=== PATIENT | female | born 1955 | race Caucasian/White ===

== ENCOUNTER 2024-01-24 20:34 | Emergency (ER) | payer MEDICARE, MEDICAID ==
[~2024-01-24] VITALS: Ht 157.5 cm; Wt 54.4 kg
[2024-01-24 20:43] VITALS: BP 152/74; PULSE 64; RESP 64; TEMP 98.3; O2SAT 94
[2024-01-24] MEDS: TRAMADOL 50MG TABLET PO ONE (22:34)
== END 2024-01-25 02:40 | disposition home or self-care (01) ==
LOC: ER 20:34
DX: S76.012A Strain of muscle, fascia and tendon of left hip, initial encounter (principal); I10 Essential (primary) hypertension; J44.1 Chronic obstructive pulmonary disease with (acute) exacerbation; Z88.6 Allergy status to analgesic agent; W07.XXXA Fall from chair, initial encounter; Y93.89 Activity, other specified; Y92.89 Other specified places as the place of occurrence of the external cause; Y99.8 Other external cause status
CPT/HCPCS: 73502; 99283